=== PATIENT | male | born 1940 | race Caucasian/White ===

== ENCOUNTER 2017-01-16 07:21 | Day surgery (SDC) ==
[2017-01-16] MEDS ORDERED: VERSED ONE (09:21)
[2017-01-16] MEDS ORDERED: DIPRIVAN 20 ML VIAL IVP ONE (09:21)
[2017-01-16 10:32] VITALS: BP 133/71; TEMP 98
--- NOTE | 2017-01-16 14:22 | OP ---
PROCEDURE: COLONOSCOPY TO THE CECUM. ENDOSCOPIST: Oliverio KERNS M.D. INDICATION: HISTORY OF POLYPS. INSTRUMENT: [id number]. MEDICATION: PER ANESTHESIA. PROCEDURE: The patient was positioned for colonoscopy. The digital rectal exam was negative. The colonoscope was inserted through the anus and advanced to the cecum. The cecum was identified using the ileocecal valve and the appendiceal orifice as landmarks. The scope was slowly withdrawn through an adequately prepped colon. Scattered diverticula were seen in the left colon. Retroflex exam was otherwise normal. The patient tolerated the procedure without immediate complication. Withdrawal time 10 minutes 39 seconds. PLAN: 1. Suggest repeat colonoscopy in 5 years. CC: DR. MARINO ANNE
== END 2017-01-16 10:51 | disposition home or self-care (01) ==
LOC: SURG 07:21
PROVIDERS: ATTEND Internal Medicine Gastroenterology
DX: Z09 Encounter for follow-up examination after completed treatment for conditions other than malignant neoplasm (principal); Z86.010 Personal history of colon polyps; E11.9 Type 2 diabetes mellitus without complications
CPT/HCPCS: 82962